=== PATIENT | female | born 1985 | race Two or more races ===

== ENCOUNTER 2022-08-23 12:25 | Emergency (ER) | payer OTHER ==
[~2022-08-23] VITALS: Ht 165.1 cm; Wt 76.2 kg
[2022-08-23] MEDS ORDERED: BUTALB-ASPIRIN1 EACH PO (20:09)
== END 2022-08-23 20:35 | disposition home or self-care (01) ==
LOC: ER 12:25
DX: R51.9 Headache, unspecified (principal); Z86.39 Personal history of other endocrine, nutritional and metabolic disease